=== PATIENT | male | born 1960 | race Caucasian/White ===

== ENCOUNTER 2021-10-24 12:55 | Day surgery (SDC) | payer OTHER ==
[~2021-10-24] VITALS: Ht 182.9 cm; Wt 84.0 kg
[~2021-10-24 12:55] MED LIST: EXCEDRIN EXTRA1 EAC1 PO; PERCOCET 5-3251 EACH PO
--- NOTE | 2021-10-24 15:46 | NUR ---
10/24/21 1546 Paula Mckeon 1535 PT ARRIVED IN PACU SLEEPY. ABD FIRM AND ENCOURAGED PT TO PASS FLATUS. 1545 PT VISITING WITH STAFF. NO C/O'S.
--- NOTE | 2021-10-25 22:00 | OR ---
[facility] [address] [place], [place] [address] Signed DATE OF OPERATION: 10/24/2021 SURGEON: Darshan Vivar MD PREOPERATIVE DIAGNOSES: 1. Severe epigastric pain, distant history of reflux esophagitis. 2. Colon screening. POSTOPERATIVE DIAGNOSES: 1. Distal ulcerative esophagitis with poor flap valve. 2. Multiple polyps of colon (x5). PROCEDURES: 1. Esophagogastroduodenoscopy with biopsy. 2. Total colonoscopy to cecum with cold morcellation polypectomy x3 and cold snare polypectomy x2. ANESTHESIA: Intravenous sedation; fentanyl 200 mcg and Versed 11 mg (total). INDICATION: A 61-year-old white man, a patient of SANCHEZ Aden has rather significant and severe epigastric pain. He was on PPI medication a number of years ago for empiric treatment of reflux disease. He has not had upper endoscopy in the past. He is admitted to undergo upper endoscopy for that purpose. Additionally, the patient is seen for screening colonoscopy. He has no symptoms of bleeding, diarrhea or constipation. He has not undergone colonoscopy and on that basis, he is recommended for screening as well. The risk of bleeding, infection, and perforation related to colonoscopy and upper endoscopy was reviewed in detail. He understands and wished to proceed. FINDINGS: Upper endoscopy demonstrated rather significant distal esophagitis which was ulcerative essentially. There was a poor flap valve. The stomach, duodenum and other upper abdominal findings were negative. CLOtest was negative 40 minutes post procedure. As regard to colonoscopy, the prep was excellent. Complete colonoscopy was undertaken of the cecum without question. He had five polyps in total, one at 70, another at 50, another at 40, another at 30 and one in the rectum. All were excised, three by cold Electronically Signed By: DARSHAN VIVAR MD 10/25/21 5166 PATIENT NAME: JOSEFA FERMIN OPERATIVE REPORT DATE OF : 64 REPORT #: [id number] PHYSICIAN: DARSHAN VIVAR MD PCP: BLAKE LUO PA-C REPORT IS CONFIDENTIAL AND NOT TO BE RELEASED WITHOUT AUTHORIZATION [facility] [address] [place], [place] [address] Signed morcellation technique and two by cold snare technique. DESCRIPTION OF PROCEDURE: The patient was brought to the endoscopy suite and placed in the lateral decubitus position. He underwent topical lidocaine hypopharyngeal anesthesia. He was given intravenous sedation with full cardiopulmonary monitoring. A bite block was placed. An Olympus video upper endoscope was passed in the hypopharynx. The vocal cords were normal. The scope was advanced to the esophagus. In the distal portion, there was ulcerative esophagitis without neoplasm and without English's epithelium. The scope was passed to the stomach, which was insufflated with air. The antrum appeared normal. Scope was passed through the pylorus and into the duodenum. The duodenum was normal. Biopsies were obtained there and the scope was withdrawn. A biopsy was then taken of the antrum for both [place] and pathologic testing. Retroflexed view was undertaken showing a rather poor flap valve. The scope was straightened and withdrawn and the distal esophagus was multiply biopsied as there were ulcerative changes there. There was no evidence of English's epithelium proper and no sign of neoplasm or dense stricture. The scope was further withdrawn and the remaining esophagus was normal. Plans were then made for colonoscopy. Additional sedation was given. Digital rectal examination showed a normal prostate. No other anorectal abnormality. An Olympus video colonoscope was passed in the rectum and manipulated throughout the colon ultimately intubating the cecum itself. The ileocecal valve and appendiceal orifice were well visualized. The scope was withdrawn from that point and examination throughout showed no sign of abnormality until approximately 70 cm from the anal verge, where a small sessile polyp was noted. Narrow band imaging was used to confirm this as a polyp. This was excised with cold morcellation technique. The scope was further withdrawn and at about 60 cm another similar such polyp was noted. This too was excised with cold morcellation technique. Further withdrawal to approximately 30 cm to allow for excision of another small polyp by cold morcellation technique. Withdrawal to 30 cm demonstrated a small sessile polyp excised best with cold snare technique and a similar such polyp of the rectum similarly excised. In aggregate, five polyps were excised in total. The scope was removed and the patient was taken to the recovery room in good condition. CONCLUDING DIAGNOSIS: Gastroesophageal reflux, rather severe. PLAN: 1. Initiate Prilosec 20 mg p.o. daily. We will see him back in followup in 4 to 6 weeks. 2. Five polyps. It is uncertain how many will be adenomatous versus hyperplastic but I Electronically Signed By: DARSHAN VIVAR MD 10/25/21 1079 PATIENT NAME: JOSEFA FERMIN OPERATIVE REPORT DATE OF : 64 REPORT #: [id number] PHYSICIAN: DARSHAN VIVAR MD PCP: BLAKE LUO PA-C REPORT IS CONFIDENTIAL AND NOT TO BE RELEASED WITHOUT AUTHORIZATION [address] [address] Signed suspect all will be adenomatous. Given five polyps, consideration might be made for repeat colonoscopy in the next 1 to 3 years depending on histology. MD JOCY Terry/MODL /[id number] cc: SANCHEZ Aden Copies: ~ Electronically Signed By: DARSHAN VIVAR MD 10/25/21 2200 PATIENT NAME: JOSEFA FERMIN OPERATIVE REPORT DATE OF : 64 REPORT #: [id number] PHYSICIAN: DARSHAN VIVAR MD PCP: BLAKE LUO PA-C REPORT IS CONFIDENTIAL AND NOT TO BE RELEASED WITHOUT AUTHORIZATION
--- NOTE | 2021-10-27 14:42 | PATH ---
[facility] [address], [place] [address] Signed SPECIMEN(S): A DUODENAL BIOPSY SPECIMEN(S): B ANTRUM/PYLORUS BIOPSY SPECIMEN(S): C DISTAL ESOPHAGEAL BIOPSY SPECIMEN(S): D POLYP AT 70 CM SPECIMEN(S): E POLYP AT 50 CM SPECIMEN(S): F POLYP AT 40 CM SPECIMEN(S): G POLYP AT 30 CM SPECIMEN(S): H RECTAL POLYP SPECIMEN SOURCE: A. DUODENAL BIOPSY B. ANTRUM/PYLORUS BIOPSY C. DISTAL ESOPHAGEAL BIOPSY D. POLYP AT 70 CM E. POLYP AT 50 CM F. POLYP AT 40 CM G. POLYP AT 30 CM H. RECTAL POLYP CLINICAL HISTORY: Colonoscopy screening; complains of epigastric pain with s/s of reflux. Postop diagnosis: Severe esophagitis; multiple polyps FINAL PATHOLOGIC DIAGNOSIS: A. Duodenum, biopsy: - Duodenal mucosa with prominent Kirit's glands. - Negative for increased intraepithelial lymphocytes or villous blunting. - Negative for dysplasia or malignancy. B. Stomach, antrum, biopsy: - Antral mucosa with no histopathologic abnormality. - Negative for Helicobacter organisms on HE stain. - Negative for dysplasia or malignancy. C. Esophagus, distal, biopsy: - Intestinal metaplasia arising in a background of squamocolumnar junctional mucosa with reflux esophagitis, see Comment. - Negative for dysplasia or malignancy. D. Colon, polyp at 70 cm, polypectomy: - Fragments of tubular adenoma. - Negative for high-grade dysplasia or malignancy. E. Colon, polyp at 50 cm, polypectomy: - Fragments of colonic mucosa with no histopathologic abnormality. PATIENT NAME: JOSEFA FERMIN PATHOLOGY DATE OF : 64 REPORT #: [id number] PHYSICIAN: MIKAEL ZIMMER PCP: BLAKE LUO PA-C REPORT IS CONFIDENTIAL AND NOT TO BE RELEASED WITHOUT AUTHORIZATION [facility] [address], [place] [address] Signed - Negative for dysplasia or malignancy. F. Colon, polyp at 40 cm, polypectomy: - Tubular adenoma. - Negative for high-grade dysplasia or malignancy. G. Colon, polyp at 30 cm, polypectomy: - Fragments of tubular adenoma. - Negative for high-grade dysplasia or malignancy. H. Rectum, polyp, polypectomy: - Colorectal mucosa with no histopathologic abnormality. - Negative for dysplasia or malignancy. COMMENT: Regarding specimen C: The findings are compatible with English's esophagus in the correct clinical setting. Clinical correlation is required. Regarding specimen H: Multiple additional deeper levels were examined. NAL:cml:C2NR MICROSCOPIC EXAMINATION: Histologic sections of all submitted blocks are examined by light microscopy. These findings, together with the gross examination, support the pathologic diagnosis. GROSS DESCRIPTION: Eight specimens are received in eight containers, labeled "JW." A. The specimen, labeled "JW, 1," and designated on the requisition "duodenum biopsy," is received in formalin and consists of two morgan soft tissue fragments that measure 0.2 and 0.3 cm in greatest dimension. The specimen is entirely submitted in cassette (A1). B. The specimen, labeled "JW, 2," and designated on the requisition "antrum/pylorus biopsy," is received in formalin and consists of two morgan soft tissue fragments that measure 0.3 and 0.4 cm in greatest dimension. The specimen is entirely submitted in cassette (B1). C. The specimen, labeled "JW, 3," and designated on the requisition "distal esophagus biopsy," is received in formalin and consists of seven morgan soft tissue fragments that measure 0.2 to 0.8 cm in greatest dimension. The specimen is entirely submitted in cassette (C1). D. The specimen, labeled "JW, 4," and designated on the requisition "polypectomy 70 cm," is received in formalin and consists of three morgan soft tissue fragments that measure 0.2 to 0.4 cm in greatest dimension. The specimen is entirely submitted in cassette (D1). PATIENT NAME: JOSEFA FERMIN PATHOLOGY DATE OF : 64 REPORT #: [id number] PHYSICIAN: MIKAEL ZIMMER PCP: BLAKE LUO PA-C REPORT IS CONFIDENTIAL AND NOT TO BE RELEASED WITHOUT AUTHORIZATION [facility] [address], [place] [address] Signed E. The specimen, labeled "JW, 5," and designated on the requisition "polypectomy 50 cm," is received in formalin and consists of three morgan soft tissue fragments that measure 0.2 to 0.3 cm in greatest dimension. The specimen is entirely submitted in cassette (E1). F. The specimen, labeled "JW, 6," and designated on the requisition "polypectomy 40 cm," is received in formalin and consists of five morgan soft tissue fragments that measure 0.2 up to 0.3 cm in greatest dimension. The specimen is entirely submitted in cassette (F1). G. The specimen, labeled "JW, 7," and designated on the requisition "polypectomy 30 cm," is received in formalin and consists of three morgan soft tissue fragments that measure 0.2 to 0.3 cm in greatest dimension. The specimen is entirely submitted in cassette (G1). H. The specimen, labeled "JW, 8," and designated on the requisition "rectum polypectomy," is received in formalin and consists of one morgan soft tissue fragment that measures 0.2 cm in greatest dimension. The specimen is entirely submitted in cassette (H1). AI (under the direct supervision of a pathologist) The Gross Description was prepared using a voice recognition system. The report was reviewed for accuracy; however, sound-alike word errors, addition and/or deletions may occur. If there is any question about this report, please contact Client Services. PERFORMING LABORATORY: The technical component was [place] [id number] (Meat Manager: Emma Dukes MD; CLIA# [id number]). Professional interpretation was performed by [place] [address] (CLIA# [id number]). Diagnostician: Karley Walsh MD Pathologist Electronically Signed 10/27/2021 Copies: ~ PATIENT NAME: JOSEFA FERMIN PATHOLOGY DATE OF : 64 REPORT #: [id number] PHYSICIAN: MIKAEL ZIMMER PCP: BLAKE LUO PA-C REPORT IS CONFIDENTIAL AND NOT TO BE RELEASED WITHOUT AUTHORIZATION
== END 2021-10-24 16:25 | disposition home or self-care (01) ==
LOC: OPS 12:55 → DS 12:59 → OPS 14:00
PROVIDERS: ATTEND Surgery
PROC: 0DBE8ZZ Excision of Large Intestine, Via Natural or Artificial Opening Endoscopic (ICD-10-PCS; 2021-10-24)
PROC: 0DB58ZZ Excision of Esophagus, Via Natural or Artificial Opening Endoscopic (ICD-10-PCS; principal; 2021-10-24 14:00)
PROC: 0DBE8ZZ Excision of Large Intestine, Via Natural or Artificial Opening Endoscopic (ICD-10-PCS; 2021-10-24 14:00)
DX: Z12.11 Encounter for screening for malignant neoplasm of colon (principal); K21.00 Gastro-esophageal reflux disease with esophagitis, without bleeding; K22.10 Ulcer of esophagus without bleeding; D12.6 Benign neoplasm of colon, unspecified
CPT/HCPCS: 99153; G0500; J2250; J3010; J7121